=== PATIENT | female | born 1945 | race Caucasian/White ===

== ENCOUNTER 2017-08-04 09:02 | Emergency (ER) | payer OTHER ==
--- NOTE | 2017-08-04 10:28 | EDPHY ---
General Time Seen by Provider: 08/04/17 10:22 Narrative: CHIEF COMPLAINT: Toe pain redness HISTORY OF PRESENT ILLNESS: Patient presents with complaints of pain and redness in the right ft and toe. This happened over the past few days. They were traveling recently in the pain was noted when she returned. She does not think she injured the foot. She does state that she was eating multiple meals restaurant to drinking some alcohol daily. The redness and pain is isolated to the right great toe into the adjacent toe. There is some swelling of the foot but no redness. The pain is [id number]-kzlkoqnx with ambulation. Minimal at rest. No numbness, tingling or weakness. No fever chills. No calf pain, tenderness or swelling. No other associated complaints or modifying factors. DOMINANT EXTREMITY: Right hand ESTABLISHED ORTHOPEDIST: None. She does see a disaster recovery specialist REVIEW OF SYSTEMS: Ten systems reviewed and are negative unless otherwise noted in the HPI PAST MEDICAL HISTORY: SHILPA, glaucoma, bunions PAST SURGICAL HISTORY: Bunionectomy SOCIAL HISTORY: Nonsmoker. Occasional alcohol use. Lives here independently with her spouse FAMILY HISTORY: Noncontributory EXAMINATION General Appearance: Alert, no distress. Well-developed well-nourished. Cardiovascular: Symmetric DP and PT pulses 2+. Brisk cap refill in the toes of the right foot. Neurological: A&O, sensory symmetric, strength symmetric of the great toes. Skin: Warm and dry, no rash. No cellulitis. There is some erythema and warmth to the right great toe and 2nd toe. There is no erythema of the foot, ankle or calf. Extremities: Mild tenderness of the right great toe. There is no tenderness of the right midfoot, ankle or calf. No evidence of DVT. Symmetric range of motion. All compartments are soft the right lower extremity. Psychiatric: Mood and affect normal DIFFERENTIAL DIAGNOSES: Including but not limited to acute gout, fracture, osteomyelitis, DVT, cellulitis, septic joint MDM: 10:20 a.m. Erythema edema and pain in the low right great toe and in the distal phalanx of the 2nd toe on the right foot. Suspected gout but I have ordered x-ray to rule out fracture. I do not appreciate any evidence of cellulitis or DVT. I do not appreciate any evidence of septic joint. 10:50 a.m. X-ray has been read by radiologist as no acute osseous abnormality. There is swelling and hallux valgus noted. Patient re-evaluated. 10:55 a.m. Patient re-evaluated. We discussed the negative x-ray. I do suspect this is likely acute gout attack. I have ordered steroid and dose of colchicine here. I will provide a prescription for colchicine at home as well as pain medication. We discussed ice and elevation. We discussed avoiding triggers for this including purines. We discussed follow up with primary care physician. We also discussed returning here within 24 hr and she does not have acute resolution of her pain. She is comfortable this plan and discharged home stable condition. SUPERVISION: This patient was independently evaluated without direct involvement of or examination by the attending physician. ED Precautions: Worsening pain. Erythema, edema, cyanosis, pallor, paresthesia or anesthesia. - History Smoking Status: Never smoked - Objective Vital Signs: Initial Vital Signs Temperature (C) 97.5 F 08/04/17 09:07 Heart Rate 64 08/04/17 09:07 Respiratory Rate 17 08/04/17 09:07 Blood Pressure 147/75 H 08/04/17 09:07 O2 Sat (%) 98 08/04/17 09:07 O2 Delivery Mode Room Air Allergies/Adverse Reactions: No Known Allergies Allergy (Unverified 08/04/17 09:07) Home Medications: Medication Instructions Recorded Colchicine 0.6 mg PO ONCE #1 capsule 08/04/17 Indomethacin Sr [Indocin Sr 75 mg 75 mg PO DAILY #14 cap.cr 08/04/17 (*)] oxyCODONE HCL/ACETAMINOPHEN 1 each PO Q4-6PRN PRN #7 tablet 08/04/17 [Percocet 5-325 mg Tablet] Medications Given: Discontinued Medications Colchicine (Colchicine) 1.2 mg PO EDNOW ONE Stop: 08/04/17 10:59 Last Admin: 08/04/17 11:14 Dose: 1.2 mg Dexamethasone (Decadron) 8 mg PO EDNOW ONE Stop: 08/04/17 10:59 Last Admin: 08/04/17 11:14 Dose: 8 mg Indomethacin (Indocin Sr) 75 mg PO DAILY JOSELINE Stop: 01/31/18 10:59 Last Admin: 08/04/17 11:26 Dose: 75 mg Departure - Departure Disposition: Home, Routine, Self-Care Clinical Impression: Hallux valgus (acquired), right foot, Toe pain, right Condition: Good Instructions: Low Purine Diet (ED), Gout (ED), Arthralgia (ED) Additional Instructions: 1. Colchicine as prescribed x1 subsequent dose when you fill the prescription 2. Indomethacin as prescribed once daily. 1st dose was given in the emergency department 3. Pain medication as prescribed as needed 4. Return here tomorrow morning if you do not have complete resolution of your pain and swelling 5. Return here immediately for any worsening pain, any redness of the foot, ankle or calf, swelling of the right calf or ankle Referrals: Soraya Baez DPM [Doctor of Podiatric Medicine] - As per Instructions Jenna Baez [Doctor of Podiatric Medicine] - As per Instructions Prescriptions: Colchicine 0.6 mg PO ONCE #1 capsule Indomethacin Sr [Indocin Sr 75 mg (*)] 75 mg PO DAILY #14 cap.cr oxyCODONE HCL/ACETAMINOPHEN [Percocet 5-325 mg Tablet] 1 each PO Q4-6PRN PRN #7 tablet PRN Reason: Pain, Breakthrough
[2017-08-04] MEDS ORDERED: COLCHICINE 0.6 MG CAP/TAB PO ONE (10:58)
[2017-08-04] MEDS ORDERED: DEXAMETHASONE 4 MG TAB PO ONE (10:58)
[2017-08-04] MEDS ORDERED: INDOMETHACIN 75 MG PO SCH (11:00)
[2017-08-04 11:38] VITALS: BP 157/85
== END 2017-08-04 11:37 | disposition home or self-care (01) ==
DX: M20.31 Hallux varus (acquired), right foot (principal)

== ENCOUNTER → 2017-11-01 | Outpatient (CLI) | payer OTHER | LOC: BHFA 11:00 | PROVIDERS: ATTEND Internal Medicine Cardiovascular Disease | DX: R07.9 Chest pain, unspecified (principal) ==

== ENCOUNTER 2018-01-04 12:37 | Day surgery (SDC) | payer OTHER ==
[2018-01-04] MEDS ORDERED: LIDOCAINE 1% 2 ML INJ ID PRN (12:51)
[2018-01-04] MEDS ORDERED: LR 1,000 ML IV ONE (12:51)
[2018-01-04] MEDS ORDERED: ceFAZolin 2 GM/DEXTROSE 100 ML IV ONE (13:14)
--- NOTE | 2018-01-04 13:16 | PDHPUP ---
History & Physical Update H&P update statement: This history and physical update is based on an assessment of the patient which was completed after admission or registration (within 24 hours), but prior to the surgery/procedure. H&P update: H&P reviewed & patient examined (no changes since preop visit), no change in patient's condition since H&P completed
[2018-01-04] MEDS ORDERED: LIDOCAINE 2% 5 ML SDV ONE (13:37)
[2018-01-04] MEDS ORDERED: BUPIVACAINE 0.5% 30 ML SDV ONE (13:38)
[2018-01-04] MEDS ORDERED: ROPIVACAINE HCL 150 MG/30 ML INJ ONE (13:38)
[2018-01-04] MEDS ORDERED: BACITRACIN 50,000 UNITS/10 ML SYR IRR ONE ×2 (13:39→14:55)
[2018-01-04] MEDS ORDERED: DEXAMETHASONE 4 MG/ML VIAL ONE (13:39)
--- NOTE | 2018-01-04 13:50 | PDANEPAE ---
ANE History of Present Illness Bunion ANE Past Medical History - Cardiovascular History Hx Hypertension: No Hx Arrhythmias: No Hx Chest Pain: No Hx Coronary Artery / Peripheral Vascular Disease: No Hx CHF / Valvular Disease: No Hx Palpitations: No Cardiovascular History Comment: PVC'S - Pulmonary History Hx COPD: No Hx Asthma/Reactive Airway Disease: No Hx Recent Upper Respiratory Infection: No Hx Oxygen in Use at Home: No Hx Sleep Apnea: Yes Sleep Apnea Screening Result - Last Documented: Positive Pulmonary History Comment: SHILPA USES MOUTH GUARD NOT CURRENTLY IN USE HAVING DENTAL IMPLANT DONE UPPER LT FRONT - Neurologic History Hx Cerebrovascular Accident: No Hx Seizures: No Hx Dementia: No - Endocrine History Hx Diabetes: No - Renal History Hx Renal Disorders: No - Liver History Hx Hepatic Disorders: No - Neurological & Psychiatric Hx Hx Neurological and Psychiatric Disorders: No - Cancer History Hx Cancer: No - Congenital Disorder History Hx Congenital Disorders: No - GI History Hx Gastrointestinal Disorders: No - Other Health History Other Health History: GOUT ATTACK 07/2017 TOOK RX FOR AWHILE. GLAUCOMA - Chronic Pain History Chronic Pain: Yes (RT FOOT) - Surgical History Prior Surgeries: ZULY CATARACT ANE Review of Systems Review of Systems: - Exercise capacity METS (RN): 4 METS ANE Patient History - Allergies Allergies/Adverse Reactions: codeine Allergy (Verified 12/27/17 11:29) GI - Home Medications Home medications: home medication list seen and reviewed Home Medications: Ocuvite Adult 50 Plus Softgel DAILY 12/27/17 [Last Taken Unknown] Timolol HS 12/27/17 [Last Taken Unknown] Zioptan 0.0015% Eye Drops HS 12/27/17 [Last Taken Unknown] - NPO status NPO Since - Liquids (Date): 01/04/18 NPO Since - Liquids (Time): 11:30 NPO Since - Solids (Date): 01/04/18 NPO Since - Solids (Time): 05:00 - Anes Hx Anes Hx: post operative nausea and vomiting - Smoking Hx Smoking Status: Never smoked ANE Labs/Vital Signs - Vital Signs Blood Pressure: 124/69 Heart Rate: 73 Respiratory Rate: 16 O2 Sat (%): 96 Height: 170.18 cm Weight: 78.018 kg ANE Physical Exam - Airway Neck exam: FROM Mallampati Score: Class 2 - Pulmonary Pulmonary: no respiratory distress - Cardiovascular Cardiovascular: regular rate and rhythym - ASA Status ASA Status: II ANE Anesthesia Plan Anesthesia Plan: MAC
[2018-01-04] MEDS ORDERED: MIDAZOLAM 2 MG/2 ML VIAL IVP ONE (13:55)
[2018-01-04] MEDS ORDERED: SCOPOLAMINE HYDROBROMIDE 1 MG/3 DAYS PATCH TD SCH (14:00)
[2018-01-04] MEDS ORDERED: SCOPOLAMINE HYDROBROMIDE 1 MG/3 DAYS PATCH TD ONE (14:00)
[2018-01-04] MEDS ORDERED: MIDAZOLAM 2 MG/2 ML VIAL ONE (14:00)
[2018-01-04] MEDS ORDERED: PROPOFOL/EMULSION 500 MG/50 ML BOTTLE IV ONE ×2 (14:02→14:49)
[2018-01-04] MEDS ORDERED: ONDANSETRON 4 MG/2 ML VIAL ONE (14:18)
[2018-01-04] MEDS ORDERED: PROMETHAZINE HCL 25 MG/ML INJ IVP PRN (15:48)
[2018-01-04] MEDS ORDERED: HYDROmorphONE/DILAUDID 2 MG/ML INJ IVP PRN (15:48)
[2018-01-04] MEDS ORDERED: fentaNYL 100 MCG/2 ML INJ IVP PRN (15:48)
[2018-01-04] MEDS ORDERED: NALOXONE HCL 0.4 MG/ML INJ IVP PRN (15:48)
[2018-01-04] MEDS ORDERED: ONDANSETRON 4 MG/2 ML VIAL IVP PRN (15:48)
--- NOTE | 2018-01-04 16:18 | POSTANESTH ---
Post Anesthetic Evaluation Cardiovascular Status: Similar to Pre-Op Cond Respiratory Status: Similar to Pre-op Cond. Level of Consciousness/Mental Status: Alert and Oriented Pain Control: Adequate, Prn Tx Ordered Nausea/Vomiting Control: Adequate, Prn Tx Ordered Complications Possibly Related to Anesthesia: None Noted
--- NOTE | 2018-01-04 16:22 | POSTOPPROG ---
Post Op Note Date of Operation: 01/04/18 Surgeon: Jenna Baez Photographic Lithographer: Soraya Baez Anesthesiologist: Cal Escalante MD Anesthesia: LMA, Other (Specify) (light general) Pre-op Diagnosis: Advanced bunion/hallux valgus/hallux rigidus right Post-op Diagnosis: Advanced bunion/hallux valgus/rigidus Gout right Indication: pain ,deformity Procedure: Fusion first MTPJ with screw and plate fixation Findings: white crystals /joint errosions Inf/Abcess present in the surg proc area at time of surgery?: No Depth: Deep Incisional (Fascial) EBL: Minimal Complications: none Specimen(s): white flaking material consistent with uric acid sent to lab medial eminence first met head with suspected uric acid crystals.
[2018-01-04 17:29] VITALS: BP 131/75
--- NOTE | 2018-01-04 23:59 | GOP ---
DATE OF OPERATION: SURGEON: Jenna aBez DPM TECHNOLOGY APPLICATIONS ENGINEER: Soraya Baez DPM. ANESTHESIA: MAC/light general. ANESTHESIOLOGIST: Woody Escalante MD. PREOPERATIVE DIAGNOSIS: Advanced bunion hallux valgus deformity/rigidus of right foot. POSTOPERATIVE DIAGNOSIS: Advanced bunion hallux valgus deformity/rigidus of right foot. Gout. PROCEDURE PERFORMED: Fusion of the 1st metatarsophalangeal joint with screw and plate fixation of right foot, use of Nova bone graft. SPECIMENS: Sent to Pathology: The debris within the joint capsules; check for uric acid. Bone from the medial eminence with erosions and uric acid deposits, sent for gross and microscopic examination. ESTIMATED BLOOD LOSS: Less than 5 cc. DESCRIPTION OF PROCEDURE: Patient was brought into the operating room, placed on the operating table in the supine position. Intravenous sedation administered by the anesthesiologist/light general. A posterior tibial and peripheral nerve block was obtained utilizing 10 cc of 2% xylocaine plain combined with 10 cc of 0.5% ropivacaine plain. The lower extremity was prepped and draped in the usual sterile manner. After the limb had been elevated, it was exsanguinated with an Esmarch bandage and ankle tourniquet inflated to 225 mmHg, and the procedure was begun. Webril padding was utilized under the ankle cuff. Attention was directed towards the dorsal medial aspect of the 1st metatarsophalangeal joint where a significant deformity and angular hallux valgus was noted. Incision was carefully deepened with care of neurovascular structures. I then clamped and cauterized bleeders. Linear capsulotomy performed exposing the 1st metatarsophalangeal joint which was noted to have very thin cartilage with erosions on the medial and lateral aspects as well as along the circumference of the base of the proximal phalanx. White debris consistent with that of uric acid was noted within the medial capsule and then also on the metatarsal head, more so medially and laterally, and central aspect of the base of the proximal phalanx. Medial eminence was resected with a sagittal saw. The head of the 1st metatarsal and base of the proximal phalanx were prepped with the Arthrex reamers for fusion, cartilage removed. Wound copiously flushed with bacitracin irrigation solution. Joint was further prepared with subchondral drilling and microfracture. The hallux was able to be reduced into straighter position, reducing the 1st intermetatarsal angle and the metatarsus primus varus. Hallux was held in corrected position and then stabilized with a K-wire, plate temporary fixated with taks. C-arm pictures were taken to verify alignment and positioning. With loading of the forefoot, satisfactory alignment of the hallux was noted with satisfactory dorsiflexion of the distal hallux from the weightbearing surface for push-off. Significant space noted between the hallux and the 2nd digit and looked more pronounced since the 2nd digit is laterally deviated in the transverse plane. I preferred not to put hallux more laterally deviated to close space since then correction for deformity and BK would be less. Therefore felt that the hallux position was optimal. Compression screw placed distal medial to proximal lateral a 3.5 headless Arthrex screw measuring 28 mm in length. Then the 1st MPJ Arthrex fusion plate was then secured, first distal locking screw 3.0 measuring 14 mm in length. Then the proximal cortical screw that was 3 mm and 18 mm in length, achieving additional compression at the fusion site. Her bone was noted to be soft. An additional distal locking screw, a 3 mm and 16 mm in length, and then proximally a 3.0mm locking screw 16 mm in length. I could not add 3rd distally since it would interfere with the compression screw. Site was stable. Excellet compression at fusion site. With loading of the forefoot, satisfactory alignment noted of the hallux. Satisfactory reduction in the sagittal and transverse planes. Fusion site flushed /Wound was copiously irrigated again with bacitracin irrigation solution. Capsular closure achieved with 2-0 Vicryl and 3-0 Vicryl. Tourniquet was released, and a normal hyperemic response was noted to all digits. Subcutaneous closure achieved with 4-0 Monocryl, and the skin was closed with 4-0 Prolene in a horizontal mattress in simple interrupted suture manner. Dressings included Xeroform, 4x4s, fluffs, and Zay and were reinforced with tape and an Onel bandage. Patient tolerated the procedure and anesthesia well and left the operating room with vital signs stable and vascular status intact to all digits. In postoperative recovery, she was doing well. She was fitted with a Cryo Cuff. Her son-in-law and daughter will be providing her transportation home. She is to follow up at our office in 2 days for wound check. Prognosis good. INDICATIONS FOR PROCEDURES: Pain and deformity. Patient restricted with shoe gear and pain on a daily basis. History of gout to the joint. At this time, she elects to proceed with surgery as I have reviewed with her the surgical approach which would involve fusion of the joint. Goal of the procedure is to reduce the deformity and address pain. Joint fusion would address both. ADDITIONAL INJECTABLES: Included 8 cc of 0.5% Sensorcaine plain. /[id number]/MODL MTDD
== END 2018-01-04 17:42 | disposition home or self-care (01) ==
LOC: FSGY 12:37
PROVIDERS: ATTEND Podiatrist
PROC: 0QBN0ZZ Excision of Right Metatarsal, Open Approach (ICD-10-PCS; 2018-01-04)
PROC: 0SGM04Z Fusion of Right Metatarsal-Phalangeal Joint with Internal Fixation Device, Open Approach (ICD-10-PCS; principal; 2018-01-04 14:00)
DX: M20.11 Hallux valgus (acquired), right foot (principal); M20.21 Hallux rigidus, right foot; M21.611 Bunion of right foot; M1A.9XX1 Chronic gout, unspecified, with tophus (tophi); M19.071 Primary osteoarthritis, right ankle and foot
CPT/HCPCS: C1713; C1762; J0690; J1100; J2250; J2405; J2704; J2795